=== PATIENT | female | born 1995 | race Two or more races ===

== ENCOUNTER 2019-03-27 21:45 | Emergency (ER) | payer OTHER ==
--- NOTE | 2019-03-27 21:47 | ER Report ---
History and Physical Time Seen By MD: 21:43 HPI/ROS CHIEF COMPLAINT: Hives, urticaria, allergic reaction HISTORY OF PRESENT ILLNESS: 23-year-old female with a history of numerous environmental allergies primarily to sense. She's developed hives that began on Wednesday become worse over the last 2 days. They began on her thighs and spread to her entire body after coming [place] on Wednesday night. Tonight she has severe itching and is covered in bright red hives. She notes no throat closing sensation. She denies difficulty breathing or wheezing. She's never had anaphylaxis. REVIEW OF SYSTEMS: Respiratory: No cough, no dyspnea. Cardiovascular: No chest pain, no palpitations. Gastrointestinal: No vomiting, no abdominal pain. Musculoskeletal: No back pain. Allergies: Coded Allergies: Penicillins (Verified Allergy, Intermediate, "RASHES", 03/27/19) Uncoded Allergies: SEASONAL ALLERGIES (Allergy, Intermediate, 03/27/19) Home Meds Active Scripts Prednisone (PREDNISONE) 20 Mg Tablet, 20 MG PO QDAY for prevention of allergic reactio, #9 2 by mouth daily for 3 days then 1 by mouth daily for 3 days Prov:LENKA REGALADO DO 03/27/19 Reviewed Nurses Notes: Yes Old Medical Records Reviewed: Yes Constitutional Vital Sign - Last 24 Hours 03/27/19 03/27/19 03/27/19 03/27/19 21:50 22:00 22:15 22:30 Temp 98.6 Pulse 88 82 96 83 Resp 16 B/P (MAP) 144/104 124/80 (95) 113/62 (79) Pulse Ox 94 95 90 97 O2 Delivery Room Air Physical Exam General Appearance: The patient is alert, has no immediate need for airway protection and no current signs of toxicity. Vital signs stable, afebrile, skin flushed and erythematous. HEENT: Pupils equal and round no injection. TMs normal, oropharynx without redness or exudate Respiratory: Chest is non tender, lungs are clear to auscultation. Cardiac: regular rate and rhythm Gastrointestinal: Abdomen is soft and non tender, no masses, bowel sounds normal . Musculoskeletal: Neck: Neck is supple and non tender. Extremities have full range of motion and are non tender. Skin: No rashes or lesions. DIFFERENTIAL DIAGNOSIS: After history and physical exam differential diagnosis was considered for allergic reaction, anaphylaxis, urticaria Medical Decision Making ED Course/Re-evaluation ED Course Patient was admitted to an examination room. H&P was done. The differential diagnoses was considered. On clinical examination. Patient has no throat closing swelling sensation. On visualization of the oropharynx. There are no wheezing on auscultation of her lungs. Patient is itching profusely. There are gross acute erythematous hives on her arms, chest and back. Patient's medicated with prednisone 60 mg by mouth, Benadryl 25 and Pepcid 10. She is observed for one hour. Her symptoms are much improved. She would like to go home. Patient be discharged on a prednisone taper 40 mg 3, 20 mg 3. She is advised Benadryl. She is advised to find an fiber technologist in [place] or [place] on the Internet and make an appointment for consultation. Decision to Disposition Date: Mar 27, 2019 Decision to Disposition Time: 22:03 Depart Departure Latest Vital Signs Vital Signs Date Time Temp Pulse Resp B/P (MAP) Pulse Ox O2 Delivery O2 Flow Rate FiO2 03/27/19 22:30 83 113/62 (79) 97 03/27/19 21:50 98.6 16 Room Air Impression: Primary Impression: Urticaria Additional Impression: Allergic reaction Condition: Improved Disposition: HOME OR SELF-CARE New Scripts Prednisone (PREDNISONE) 20 Mg Tablet 20 MG PO QDAY for prevention of allergic reactio, #9 2 by mouth daily for 3 days then 1 by mouth daily for 3 days Prov: LENKA REGALADO DO 03/27/19 Patient Instructions: General Allergic Reaction (ED), Urticaria (ED) Additional Instructions: Take Benadryl 25 mg every 6-8 hours as needed for itching and hives Follow-up with primary care if unimproved in 3-5 days Consultation with an [employer] might be beneficial. Problem Qualifiers Additional Impression: Allergic reaction Encounter type: initial encounter Qualified Codes: T78.40XA - Allergy, unspecified, initial encounter LENKA REGALADO DO Mar 27, 2019 21:47
[2019-03-27] MEDS ORDERED: diphenhydrAMINE 25 MG CAP PO ONE (21:55)
[2019-03-27] MEDS ORDERED: predniSONE 20 MG TAB PO ONE (21:55)
[2019-03-27] MEDS ORDERED: FAMOTIDINE 20 MG TAB PO ONE (21:55)
[2019-03-27] MEDS ORDERED: PRED20TA6 PO (22:09)
[2019-03-27 22:30] VITALS: BP 113/62
== END 2019-03-27 22:54 | disposition home or self-care (01) ==
LOC: ER 22:08
DX: L50.6 Contact urticaria (principal); T78.40XA Allergy, unspecified, initial encounter
CPT/HCPCS: 99283; J7512; Q0163